=== PATIENT | female | born 2000 | race African-American/Black ===

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

== ENCOUNTER 2020-05-21 16:41 | Emergency (ER) | payer SELFPAY ==
[~2020-05-21] VITALS: Ht 172.7 cm; Wt 89.5 kg
[~2020-05-21 16:41] MED LIST changes: +NAPROSYN500 MG PO
[2020-05-21 16:57] VITALS: Ht 172.7 cm; Wt 89.5 kg
[2020-05-21 17:38] LABS: BASOPHILS 0.2 % (0-2); EOSINOPHILS 0.1 % (0-7); HEMATOCRIT 36.2 % (36.0-48.0); HEMOGLOBIN 12.3 g/dL (12-16); IMMATURE GRANULOCYTES 0.3 % (0-5); LYMPHOCYTES 12.1 % (15-50); MCH 28.5 pg (26.0-34.0); MCV 83.8 fL (80.0-100.0); MONOCYTES 5.9 % (2-11); NEUTROPHILS 81.4 % (40-80); PLATELET COUNT 314 10x3/uL (130-400); RBC 4.32 10x6/uL (4.00-5.40); RDW 14.3 % (11.5-14.5); WBC 16.4 10x3/uL (4.8-10.8)
[2020-05-21 17:52] LABS: CALC OSMOLALITY 265 mosm/kg (275-300); CALCIUM 9.4 mg/dL (8.5-10.1); CARBON DIOXIDE 20.5 mmol/L (21.0-32.0); CHLORIDE - SERUM 101 mmol/L (98-107); CREATININE - SERUM 0.6 mg/dL (0.6-1.3); GLUCOSE 85 mg/dL (74-106); POTASSIUM - SERUM 3.5 mmol/L (3.5-5.1); SODIUM 134 mmol/L (136-145); UREA NITROGEN 11 mg/dL (7-18); eGFR NON AFRICAN AMERICAN > 90 mL/min (90-120)
[2020-05-21 17:55] LABS: HCG SERUM POSITIVE (NEGATIVE)
[2020-05-21 18:23] LABS: ALBUMIN 3.5 g/dL (3.4-5.0); ALKALINE PHOSPHATASE 67 U/L (30-120); ALT (SGPT) 19 U/L (10-68); BILIRUBIN - TOTAL 0.38 mg/dL (0.2-1.3); HCG - QUANTITATIVE (MATERNAL) 102046 mIU/mL; PROTEIN - SERUM 7.8 g/dL (6.4-8.2)
[2020-05-21 19:06] LABS: BILIRUBIN NEGATIVE (NEGATIVE); GLUCOSE NEGATIVE (NEGATIVE); KETONE LARGE mg/dL (NEGATIVE); NITRITE NEGATIVE (NEGATIVE); UROBILINOGEN NORMAL (NORMAL)
[2020-05-21 19:11] LABS: EPITHELIAL CELLS 0-5 /hpf (0-5); RED CELLS - URINE NONE SEEN /hpf (0-5); WHITE CELLS - URINE 0-5 /hpf (NEGATIVE)
[2020-05-21 19:12] LABS: BACTERIA FEW /hpf (NEGATIVE)
[2020-05-21] MEDS ORDERED: REGLAN10 MG PO (20:11)
[2020-05-21] MEDS ORDERED: PEPCID AC20 MG PO (20:11)
[2020-05-21] MEDS ORDERED: MACROBID100 MG PO (20:11)
[2020-05-21 20:34] VITALS: BP 119/69
== END 2020-05-21 20:34 | disposition home or self-care (01) ==
LOC: D.ER 16:41
PROVIDERS: Family Medicine
DX: O26.891 Other specified pregnancy related conditions, first trimester (principal); R11.10 Vomiting, unspecified; K29.70 Gastritis, unspecified, without bleeding; D72.828 Other elevated white blood cell count; N39.0 Urinary tract infection, site not specified

== ENCOUNTER 2021-03-10 16:24 | Emergency (ER) | payer MEDICAID ==
[~2021-03-10 16:24] MED LIST changes: +MACROBID100 MG PO; +PEPCID AC20 MG PO; +REGLAN10 MG PO
[2021-03-10 18:06] VITALS: Ht 172.7 cm
== END 2021-03-10 18:07 | disposition left against medical advice (07) ==
LOC: D.ER 16:24
DX: M54.9 Dorsalgia, unspecified (principal)